=== PATIENT | female | born 1955 | race Caucasian/White ===

== ENCOUNTER 2017-04-27 17:16 | Emergency (ER) | payer OTHER ==
[~2017-04-27] VITALS: Ht 157.5 cm; Wt 49.9 kg
[2017-04-27] MEDS ORDERED: MULTIPLE VITAM1 EAC2 PO (17:44)
[2017-04-27] MEDS ORDERED: CALCIUM 500 +1 EAC5 PO ×2 (17:45→17:50)
[2017-04-27] MEDS ORDERED: VITAMIN D1000 UNI1 PO (17:48)
[2017-04-27] MEDS ORDERED: TRAMADOL 50 MG50 MG PO (18:14)
== END 2017-04-27 18:10 | disposition home or self-care (01) ==
LOC: ER 17:16
DX: M25.531 Pain in right wrist (principal); Z88.8 Allergy status to other drugs, medicaments and biological substances